=== PATIENT | female | born 1945 | race Caucasian/White ===

== ENCOUNTER → 2017-02-09 | Outpatient (CLI) | payer OTHER ==
[~2017-02-09] MED LIST: ASPIRIN325 MG PO; CARDIZEM CD240 MG PO; EYE CAP PO; GLIPIZIDE5 MG PO; LASIX40 MG PO; LISINOPRIL40 MG PO; METFORMIN500 MG PO; OSTEO-BI-FLEX 21 TAB PO; PRAVACHOL40 MG PO; [UNRECOGNIZED DRUG - OTHER] PO
== END | disposition home or self-care (01) ==
LOC: US 14:54
DX: N18.3 Chronic kidney disease, stage 3 (moderate) (principal)

== ENCOUNTER 2017-09-19 15:22 | Inpatient (IN) | payer OTHER ==
[~2017-09-19] VITALS: Ht 170.2 cm; Wt 102.3 kg
--- NOTE | ~2017-09-19 | CON ---
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 The patient is getting CT scan as well as a bone scan. Depending upon that further intervention. In the meantime, I will review the MRI of the brain. Discussed with the family. Full consult to follow. JAVAN HINDS MD CM:CONSTR:REPORT OF CONSULTATION 1131 09/21/17 0004 interface
--- NOTE | 2017-09-19 15:55 | NUR ---
A 72, admitted to , under the services of GRETA Shin MD with a diagnosis of POSS CVA, DIZZY . Chief complaint is DIZZINESS. Patient arrived via wheel chair from [place]. Monitor applied. Initial assessment completed. Vital signs taken and recorded. GRETA SHIN MD notified of admission to the unit. Orders received. See assessment for past medical history, medications and allergies. visitation policy reviewed. Clothing/patient valuable form completed. RAMIN PIERRE
[2017-09-19] MEDS ORDERED: ASPIR LOW81 MG PO (15:57)
[2017-09-19] MEDS ORDERED: ZESTRIL10 MG PO (15:58)
[2017-09-19 16:00] VITALS: BP 180/63
[2017-09-19] MEDS ORDERED: TRAD5TAB1 PO (16:00)
[2017-09-19] MEDS ORDERED: PRAVACHOL80 M1 GT (16:00)
[2017-09-19] MEDS ORDERED: ACTOS30 M1 PO (16:00)
[2017-09-19] MEDS ORDERED: HYDROCHLOROTH12.5 M3 PO (16:01)
[2017-09-19] MEDS ORDERED: SYSTANE 0.3-0.415 ML OP (16:03)
[2017-09-19] MEDS ORDERED: LOVAZA1 GM PO (16:04)
[2017-09-19 18:07] LABS: BASO % 0.2 % (0.0-1.0); EOS # 0.1 10*3/uL (0.0-0.4); EOS % 1.7 % (1.0-4.0); HEMOGLOBIN 9.2 g/dl (12.0-16.0); LYMPH # 1.9 10*3/uL (1.3-4.4); LYMPH % 22.9 % (27.0-41.0); MEAN CELL VOLUME 98.2 fl (81.0-99.0); MEAN CORPUSCULAR HGB 32.3 pg (27.0-31.0); MEAN CORPUSCULAR HGB CONC 32.9 g/dl (33.0-37.0); MEAN PLATELET VOLUME 10.1 fl (9.6-12.3); MONO # 0.4 10*3/uL (0.1-1.0); NEUT # 5.7 10*3/uL (2.3-7.9); NEUT % 69.5 % (47.0-73.0); PLATELET COUNT AUTOMATED 241 10*3/uL (130-400); RED BLOOD COUNT 2.85 10*6/uL (4.10-5.10); RED CELL DISTRI WIDTH 14.3 % (0-14.5); WHITE BLOOD COUNT 8.2 10*3/uL (4.8-10.8)
[2017-09-19 18:24] LABS: ALBUMIN 2.6 gm/dl (3.1-4.5); CREATININE 1.92 mg/dL (0.55-1.02); MAGNESIUM 2.3 mg/dL (1.5-2.1); PHOSPHOROUS 3.2 mg/dL (2.5-4.9); POTASSIUM 3.9 mmol/L (3.5-5.1); TOTAL PROTEIN 10.3 gm/dL (6.4-8.2)
[2017-09-19 18:25] LABS: FREE T4 1.52 ng/dl (0.76-1.46)
[2017-09-19 18:30] LABS: THYROID STIM HORMONE (HS) 1.41 uIU/ml (0.358-4.75)
--- NOTE | 2017-09-19 18:39 | NUR ---
PT MEDICATED WITH TYLENOL FOR C/O HEADACHE AND VISTARIL FOR ANXIETY. WILL MONITOR
[2017-09-19 19:09] LABS: VITAMIN D, 25-HYDROXY 21.8 ng/mL (30-100)
--- NOTE | 2017-09-19 19:14 | NUR ---
SPOKE WITH DR HINDS REGARDING CONSULT. NEW ORDERS RECIEVED
[2017-09-19 20:00] VITALS: BP 174/54
--- NOTE | 2017-09-19 20:19 | NUR ---
PT RECEIVED RESTORIL FOR ANXIETY AND TO AID REST AND SLEEP.
--- NOTE | 2017-09-19 20:30 | NUR ---
PT RECEIVED RESTORIL EARLY PER DR ORDERS. PT IS ANXIOUS AND SHAKING.
--- NOTE | 2017-09-19 21:45 | NUR ---
PT CLAIMS RESTORIL HAS TAKEN EFFECT AND HELPED HER TO RELAX. SHE IS NO LONGER SHAKING UNCONTROLLABLY AND SEEMS LESS ANXIOUS.
[2017-09-20] VITALS: BP 134/49
--- NOTE | 2017-09-20 06:15 | NUR ---
RADIOLOGY CALLED, PT OYSTER PICKER TOO HIGH TO DO CT ABD/PEL/CHEST WITH CONTRAST INJ. CALLED AND SPOKE TO DR HINDS, HE SAID IT IS OK TO DO THE CT WITHOUT CONTRAST
[2017-09-20 06:37] LABS: BASO % 0.5 % (0.0-1.0); EOS # 0.2 10*3/uL (0.0-0.4); EOS % 3.4 % (1.0-4.0); HEMATOCRIT 23.9 % (37.0-47.0); HEMOGLOBIN 7.7 g/dl (12.0-16.0); LYMPH # 2.2 10*3/uL (1.3-4.4); LYMPH % 36.3 % (27.0-41.0); MEAN CELL VOLUME 99.6 fl (81.0-99.0); MEAN CORPUSCULAR HGB 32.1 pg (27.0-31.0); MEAN CORPUSCULAR HGB CONC 32.2 g/dl (33.0-37.0); MEAN PLATELET VOLUME 10.3 fl (9.6-12.3); MONO # 0.4 10*3/uL (0.1-1.0); MONO % 7.2 % (3.0-9.0); NEUT # 3.2 10*3/uL (2.3-7.9); NEUT % 52.3 % (47.0-73.0); PLATELET COUNT AUTOMATED 202 10*3/uL (130-400); RED CELL DISTRI WIDTH 14.5 % (0-14.5); WHITE BLOOD COUNT 6.1 10*3/uL (4.8-10.8)
[2017-09-20 06:38] LABS: CREATININE 1.82 mg/dL (0.55-1.02); TOTAL PROTEIN 8.2 gm/dL (6.4-8.2)
[2017-09-20 08:00] VITALS: BP 152/48
--- NOTE | 2017-09-20 08:30 | NUR ---
Gas Leak Tester in to talk to patient. Patient states lives at HOME with HER AND FAMILY. There are 5 steps in the home. Physician: DR HERNDON [facility] Home health services: NONE Patient's level of ADLs: MINIMAL ASSIST Patient has working utilities: YES DME: CANE Follow-up physician's appointment after d/c: PREFERS TO MAKE OWN APPT Does patient want to access PORTAL?: Discharge plan HOME IF POSSIBLE. KELSEY DAVE
--- NOTE | 2017-09-20 11:00 | NUR ---
AM MEDS TAKEN.
[2017-09-20 12:00] VITALS: BP 176/65
--- NOTE | 2017-09-20 13:07 | NUR ---
MEDICATED WITH TYLENOL FOR HEADACHE.
--- NOTE | 2017-09-20 14:26 | NUR ---
NO FURTHER COMPLAINTS.
[2017-09-20 16:00] VITALS: BP 191/74
[2017-09-20] MEDS ORDERED: Vitamin D PO (17:38)
[2017-09-20] MEDS ORDERED: LISINOPRIL20 MG PO (17:38)
--- NOTE | 2017-09-20 18:25 | NUR ---
NURSE TO NURSE REPORT CALLED TO [facility].
--- NOTE | 2017-09-20 18:30 | NUR ---
PATIENT DISCHARGED TO [facility] VIA AMBULANCE. BELONGINGS AND PAPERWORK SENT WITH PATIENT.
== END 2017-09-20 18:30 | disposition short-term general hospital (02) | DRG 606 ==
LOC: 5E 15:22
PROVIDERS: Internal Medicine Hospice and Palliative Medicine; ADMIT Internal Medicine
DX: R90.0 Intracranial space-occupying lesion found on diagnostic imaging of central nervous system (principal); N17.0 Acute kidney failure with tubular necrosis; E43 Unspecified severe protein-calorie malnutrition; R65.10 Systemic inflammatory response syndrome (SIRS) of non-infectious origin without acute organ dysfunction; E11.22 Type 2 diabetes mellitus with diabetic chronic kidney disease; H49.23 Sixth [abducent] nerve palsy, bilateral; E66.01 Morbid (severe) obesity due to excess calories; E11.65 Type 2 diabetes mellitus with hyperglycemia; E88.09 Other disorders of plasma-protein metabolism, not elsewhere classified; I16.1 Hypertensive emergency; E83.41 Hypermagnesemia; D64.9 Anemia, unspecified; N18.3 Chronic kidney disease, stage 3 (moderate); H50.9 Unspecified strabismus; I12.9 Hypertensive chronic kidney disease with stage 1 through stage 4 chronic kidney disease, or unspecified chronic kidney disease; Z98.42 Cataract extraction status, left eye; Z98.41 Cataract extraction status, right eye; Z87.891 Personal history of nicotine dependence; Z82.49 Family history of ischemic heart disease and other diseases of the circulatory system; Z79.82 Long term (current) use of aspirin; Z79.899 Other long term (current) drug therapy; Z80.8 Family history of malignant neoplasm of other organs or systems; Z83.49 Family history of other endocrine, nutritional and metabolic diseases

== ENCOUNTER 2017-10-23 14:31 | Inpatient (IN) | payer OTHER ==
[~2017-10-23] VITALS: Ht 167.6 cm; Wt 101.3 kg
--- NOTE | ~2017-10-23 | PR ---
[place], [place] PROGRESS NOTE NAME: BRANDO BRAN [facility] #: [id number] UNIT #: [id number] ROOM: 422 DOCTOR: JAVAN HINDS MD BIRTHDATE: [birth year] DOS: 10/26/2017 SUBJECTIVE: The patient is doing better. She is due for a MediPort tomorrow. She is feeling better. REVIEW OF SYSTEMS: HEENT: No trouble swallowing. No double vision. No loss of vision. No pain. ENT AND RESPIRATORY: No wheeze. No change in voice. No cough. No shortness of breath. No coughing up blood. No epistaxis. CARDIOLOGIC: No chest pain. No dizziness. No irregular heartbeat. No leg edema. No palpitations. No shortness of breath. HEMATOLOGIC AND LYMPH: No past transfusion. No fatigue. No loss of appetite. No easy bruising. GASTROENEROLOGIC: No change in bowel habits. No vomiting blood. No abdominal cramping. No nausea. No vomiting. No diarrhea. No constipation. No blood in stool. FEMALE REPRODUCTIVE: No dyspareunia. No pelvic pain. MUSCULOSKELETAL: No back pain. No muscle pain or weakness. No tingling/numbness. UROLOGIC: No pain with urination. No difficulty urinating. No frequent urination. NEUROLOGIC: No burning pain in feet. No trouble with coordination. No loss of consciousness. No headache. No tingling/numbness. No memory loss. PHYSICAL EXAMINATION: GENERAL: Pleasant woman in no apparent distress. She is awake, alert and oriented. VITAL SIGNS: Stable. She is afebrile. HEENT: Normocephalic, atraumatic. NECK AND THYROID: Supple. No JVD, thyromegaly, or lymphadenopathy. HEART: Normal S1, S2. Regular rate and rhythm. LUNGS: Clear to auscultation and percussion. ABDOMEN: Soft. Nontender, nondistended. Bowel sounds present. EXTREMITIES: Normal ROM. No clubbing. No edema. LABORATORY DATA: White count of 6.9, hemoglobin of 5.7, hematocrit 17.5, platelet count of 137,000. Glucose of 258, creatinine of 20, EGFR of 23. Sodium 136, potassium 4.6, chloride 104, bicarbonate 24, calcium 8.1. ASSESSMENT: 1. Recently diagnosed multiple myeloma. 2. Severe anemia. 3. Acute renal failure with tubular necrosis. PLAN: Workup for multiple myeloma has been ordered, awaiting for the record filing, they need to come back. In the meantime, we will give few units of packed RBCs depending on further intervention. I had detailed discussion with the patient about it, seemed to understand it. We will continue the heparin and later change to oral anticoagulation. Ample time was given to the patient to ask me questions. [place], [place] PROGRESS NOTE NAME: BRANDO BRAN UNIT #: [id number] ROOM: 422 DOCTOR: JAVAN HINDS MD BIRTHDATE: [birth year] JAVAN HINDS MD CM:PNTRANS [id number] JAVAN HINDS MD 10/26/17 1203 interface
--- NOTE | ~2017-10-23 | CON ---
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 The patient had huge osteolytic lesion, history of chronic heart disease, stage 3, essential hypertension, hypercholesterolemia, hypermagnesemia, morbid obesity, type 2 diabetes mellitus, and vitamin D deficiency. PAST SURGICAL HISTORY: Right eye surgery secondary to strabismus and rectal repair, history of bilateral cataract extraction, and spinal surgery. SOCIAL HISTORY: No smoking or drinking. Used to be a former smoker, quit 30 years ago. FAMILY HISTORY: Father had throat cancer, at 80. Mother had hypertension and hypothyroidism, at age 93. ALLERGIES: No known allergies. MEDICATIONS: Norvasc, aspirin, bumetanide, vitamin D3, dexamethasone, famotidine, hydrochlorothiazide, lisinopril, ____, Actos, Pravachol, and Celexa. REVIEW OF SYSTEMS: CONSTITUTIONAL: No chills. No fatigue. No fever. No loss of appetite. No night sweats. No weakness. No weight loss. HEENT: No trouble swallowing. No loss of smell. No loss of hearing. No double vision. No pain. No discharge. ENT AND RESPIRATORY: No wheeze. No sore throat. No change in voice. No hearing loss. No nose bleed. No cough. No trouble breathing through nose. No shortness of breath. No coughing up blood. No epistaxis. CARDIOVASCULAR: No chest pain. No dizziness. No irregular heartbeat. No leg edema. No pain in legs while walking. No palpitations. No shortness of breath. DERMATOLOGIC: No acne. No hives. No laceration. No mole. No rash. ENDOCRINE: No cold intolerance. No diabetes. No fatigue. No hot flashes. No polydipsia. No polyuria. No urinating frequently. No weight loss. HEMATOLOGIC AND LYMPH: No fatigue. No easy bruising. GASTROENTEROLOGIC: No change in bowel habits. No indigestion. No frequent [place], [place] REPORT OF CONSULTATION NAME: BRANDO BRAN UNIT #: [id number] ROOM: [facility] DOCTOR: JAVAN HINDS MD BIRTHDATE: [birth year] bloating. No vomiting blood. No abdominal cramping. No nausea. No heartburn. No vomiting. No abdominal pain. No dysphagia. No diarrhea. No constipation. No blood in stool. FEMALE REPRODUCTIVE: No vaginal itching. No difficulty urinating. No heavy periods. No dyspareunia. No sexually active. No dysmenorrhea. No pelvic pain. No breast pain. No nipple discharge. No abnormal vaginal discharge. No hot flashes. MUSCULOSKELETAL: No back pain. No muscle pain or weakness. No neck pain. No tingling/numbness. No swelling/bruising. No osteoporosis treatment. OPHTHALMOLOGIC: No double vision. No diminished vision. No loss of vision. UROLOGIC: No dysuria. No frequent nighttime urination. No irregular periods. No pain with urination. No difficulty urinating. No blood in urine. No frequent urination. No urinary incontinence. NEUROLOGIC: No loss of sensation in specific body area. No vertigo. No burning pain in feet. No trouble with balance. No trouble with coordination. No loss of consciousness. No loss of feeling/power. No confusion. No headache. No tingling/numbness. PSYCHOLOGIC: No tinnitus. No headaches. No shortness of breath. No weight decrease. No nausea. No vomiting. No abdominal discomfort. No constipation. No diarrhea. No depression. No anxiety. PHYSICAL EXAMINATION: GENERAL: General appearance: She is a pleasant woman, in no apparent distress. VITAL SIGNS: Stable. She is afebrile. HEENT: Oral mucosa appears intact. The external ears are normal in appearance. Nares are patent without lesions, exudates, erythema, or inflammation. Tongue is symmetrical. Uvula is midline. Right eye, glasses made opaque. NECK AND THYROID: Neck supple without palpable masses. Trachea is midline. No thyromegaly. No carotid bruit or JVD. BREASTS: Normal. Nipples unremarkable. No drainage. No lumps felt on either side. HEART: Normal S1, S2, without significant murmur, rub, or gallop. LUNGS: Clear to auscultation and percussion with good air entry bilaterally. The patient is breathing easily without the use of accessory muscles. Diaphragmatic excursions are intact. ABDOMEN: No costovertebral angle tenderness. Soft. No organomegaly or masses. Nontender. No hernias present. Liver and spleen are not palpable. LYMPHATIC: No adenopathy noted in the cervical, supraclavicular, axillary, or inguinal regions. NEUROLOGIC: Nonfocal. Oriented to person, place, and time. MENTAL STATUS: Appropriate for mood and affect. PERIPHERAL PULSES: No varicosities. Femoral and pedal pulses are palpable. EXTREMITIES: Positive edema, bilateral lower extremity. No clubbing, cyanosis, or erythema. LABORATORY DATA: Sodium 139, potassium 4.1, chloride 108, bicarbonate 28. White count of 5.0, hemoglobin 7.9, hematocrit 23.7, platelet count of 106,000. On 10/25/2017, white count of 3.8, hemoglobin 6.1, hematocrit 18.5, MCV 100.0, platelet count of 113,000. [place], [place] REPORT OF CONSULTATION NAME: BRANDO BRAN UNIT #: [id number] ROOM: 422 DOCTOR: JAVAN HINDS MD BIRTHDATE: [birth year] ASSESSMENT: 1. Bilateral DVT. 2. Acute renal failure with tubular necrosis. 3. Recently diagnosed multiple myeloma. 4. Thrombocytopenia. 5. Macrocytic anemia. PLAN: The patient was started on heparin. It can be later changed to oral anticoagulation. In addition, I am going to get records from [facility], where she was diagnosed with multiple myeloma. Transfusion on p.r.n. basis. She will be getting a couple units of packed RBC. I had detailed discussion with the patient about it, seemed to understand it. Ample time was given to the patient to ask me questions. We will follow. Thanks for consulting and letting me participate in the care of this interesting patient. JAVAN HINDS MD CM:CONSTR:REPORT OF CONSULTATION 1220 10/26/17 0520 interface
--- NOTE | ~2017-10-23 | CON ---
[place], [place] REPORT OF CONSULTATION [id number] UN[facility] #: [id number] ROOM: [facility] DOCTOR: CLAUDY MAYO MD BIRTHDATE: [birth year] DOS: 10/26/2017 REQUESTING PHYSICIAN: REASON FOR CONSULTATION: Code blue/syncope. ASSESSMENT: 1. Initial presentation for bilateral lower extremity pain with subsequent evidence of bilateral deep venous thrombosis. 2. Recent diagnosis of multiple myeloma. Patient has been managed at [facility] with radiation for lytic lesions. 3. History of coronary artery disease. 4. Hypertension. 5. Diabetes. 6. Hyperlipidemia. 7. Morbid obesity. 8. Severe anemia following the use of heparin, current hemoglobin is 5. 9. Consultation for code blue/syncope while in the bathroom. PLAN: 1. Cycle cardiac enzymes. 2. Stop heparin. 3. Consider IVC filter placement as soon as possible. 4. Proceed with an echocardiogram. 5. GI workup for anemia. 6. Ischemic workup will be considered as an outpatient. 7. Consider IV fluids since patient appears to be prerenal. 8. Hold diuretics for now. 9. Obtain old record regarding patient's cardiac history. HISTORY OF PRESENT ILLNESS: The patient is a pleasant 72-year-old female unknown to our practice, was referred to our service for code blue and CPR after the patient was in the bathroom and found down unresponsive. Apparently, the patient was admitted for bilateral lower extremity edema after going through radiation treatment for lytic lesion from her multiple myeloma, which was recently diagnosed. Apparently, the patient went to the bathroom. She was found there completely unresponsive. She was pulled out quickly and CPR was initiated which the patient recovered very quickly. The patient currently is flat in bed. She is fatigued, kind of hard to get detailed history but most was obtained from old notes also. At any rate, patient denies any specific cardiac complaint. She is feeling weak and tired, but no chest pain, chest pressure, heaviness or tightness. No symptomatic palpitation. No other symptoms could be elicited. The patient is very sleepy also. PAST MEDICAL HISTORY: As detailed in my assessment. SOCIAL HISTORY: The patient denies any current tobacco, alcohol or illicit drug abuse. FAMILY HISTORY: Not applicable in view of patient age. [place], [place] REPORT OF CONSULTATION NAME: BRANDO BRAN UNIT #: [id number] ROOM: [facility] DOCTOR: CLAUDY MAYO MD BIRTHDATE: [birth year] CURRENT MEDICATIONS: Solu-Medrol, Lasix, Zocor, vitamin D, Actos, lisinopril, hydrochlorothiazide, fish oil, Pepcid, Bumex, Norvasc, morphine, Decadron, insulin, . ALLERGIES: The patient has no known drug allergies. REVIEW OF SYSTEMS: Not performed. PHYSICAL EXAMINATION: GENERAL: The patient is sleepy, tired and very weak. She is completely flat in bed, denies any ongoing complaint. VITAL SIGNS: Blood pressure 102/50, heart rate 83, respiratory rate of 14, temperature 97.8. HEENT: Extraocular movements intact. Pupils equal, round and reactive to light. Conjunctivae, significant pallor. Throat, no petechiae. NECK: Good upstroke. Bruits could be heard over both carotids. No lymphadenopathy, no thyromegaly. HEART: S1, S2 with holosystolic murmur at left sternal border. No rub or sternal heave. CHEST AND BACK: Not examined. LUNGS: Decreased air movement, but no rylan wheezing or rales. ABDOMEN: Obese, distended, soft, limited exam, unable to appreciate any masses or bruits, present bowel sounds. LOWER EXTREMITIES: There is no significant edema with quite faint distal pulses. NEUROLOGIC: Grossly nonfocal. SKIN: No significant rash. LABORATORY DATA: White count 9.6, hemoglobin 6.7, creatinine 2.7, BUN 62, GFR 17%. Total protein is 5.2, albumin is 1.8. CLAUDY MAYO MD CM:CONSTR:REPORT OF CONSULTATION 1746 10/27/17 0038 interface
[~2017-10-23 14:31] MED LIST changes: +ACTOS30 M1 PO; +ASPIR LOW81 MG PO; +HYDROCHLOROTH12.5 M3 PO; +LISINOPRIL20 MG PO; +LOVAZA1 GM PO; +PRAVACHOL80 M1 PO; +SYSTANE 0.3-0.415 ML OP; +TRAD5TAB1 PO; +Vitamin D PO; +ZESTRIL10 MG PO
[2017-10-23 15:16] LABS: BASO % 0.1 % (0.0-1.0); EOS % 0.5 % (1.0-4.0); HEMATOCRIT 24.2 % (37.0-47.0); HEMOGLOBIN 7.9 g/dl (12.0-16.0); LYMPH # 1.3 10*3/uL (1.3-4.4); LYMPH % 15.3 % (27.0-41.0); MEAN CELL VOLUME 98.4 fl (81.0-99.0); MEAN CORPUSCULAR HGB 32.1 pg (27.0-31.0); MEAN CORPUSCULAR HGB CONC 32.6 g/dl (33.0-37.0); MEAN PLATELET VOLUME 9.5 fl (9.6-12.3); MONO # 0.4 10*3/uL (0.1-1.0); NEUT # 6.5 10*3/uL (2.3-7.9); NEUT % 77.2 % (47.0-73.0); NUCLEATED RED BLOOD CELL 0.4 % (0.0-0.0); PLATELET COUNT AUTOMATED 109 10*3/uL (130-400); RED BLOOD COUNT 2.46 10*6/uL (4.10-5.10); WHITE BLOOD COUNT 8.5 10*3/uL (4.8-10.8)
[2017-10-23 15:41] LABS: ALBUMIN 2.5 gm/dl (3.1-4.5); CREATININE 1.87 mg/dL (0.55-1.02); PHOSPHOROUS 2.6 mg/dL (2.5-4.9); POTASSIUM 4.2 mmol/L (3.5-5.1)
[2017-10-23 17:29] VITALS: BP 167/70
[2017-10-23 17:30] VITALS: BP 167/70
--- NOTE | 2017-10-23 17:50 | NUR ---
Time: 1749 A 72 year old FEMALE admitted to under services of DR. YANICK KERR,GRETA. Pt. arrived via wheel chair from [place]. Chief complaint: BILATERAL LEGS SWELLING, POSITIVE FOR BILATERAL DVT ON ULTRASOUND TODAY. TEENA WILKINSON
[2017-10-23] MEDS ORDERED: HYDR25T PO (19:38)
[2017-10-23] MEDS ORDERED: PIOGLITAZONE HC30 MG PO (19:40)
[2017-10-23] MEDS ORDERED: NORVASC10 MG PO (19:42)
[2017-10-23] MEDS ORDERED: VITAMIN D-32000 UNIT PO (19:43)
[2017-10-23] MEDS ORDERED: SENEXON8.6 M1 PO (19:43)
[2017-10-23] MEDS ORDERED: PEPCID20 MG PO (19:45)
--- NOTE | 2017-10-23 19:45 | NUR ---
MED REC UPDATED US[facility], LIST PLACED ON CHART.
[2017-10-23] MEDS ORDERED: DEXAMETHASONE2 MG PO (19:46)
[2017-10-23] MEDS ORDERED: ARTIFICIAL TEAR15 M1 OU (19:47)
[2017-10-23] MEDS ORDERED: SODIUM BICARBO650 MG PO (19:48)
[2017-10-23] MEDS ORDERED: FUROSEMIDE20 M1 PO (19:48)
[2017-10-23] MEDS ORDERED: BUMETANIDE2 MG PO (19:50)
--- NOTE | 2017-10-23 19:52 | NUR ---
PT IN BED, LAYING DOWN WATCHING TV. LUNGS ARE CLEAR AND DIMINISHED. BLE EDEMA WITH 4+ PITTING. NO PULSES PALPABLE. DOPPLER USED, PULSES AUSCULTATED BILAT. IV SITE IS ASYM WITH NO COMPLAINTS. BEDSIDE COMMODE AND WALKER AT BEDSIDE. NO COMPLAINTS PER PT. WILL CONTINUE TO MONITOR.
[2017-10-23 20:00] VITALS: BP 140/36
[2017-10-23 20:47] LABS: ACT PARTIAL THROMBO TIME 20.6 SECONDS (20.8-31.5)
[2017-10-24] VITALS: BP 154/65
--- NOTE | 2017-10-24 03:06 | NUR ---
RESTING IN BED WITH EYES CLOSED RESPS EASY AND NONLABORED WITH NO S/S OF DISTRESS CALL LIGHT WITH IN REACH
[2017-10-24 06:08] LABS: HEMATOCRIT 23.7 % (37.0-47.0); HEMOGLOBIN 7.9 g/dl (12.0-16.0); MEAN CELL VOLUME 99.6 fl (81.0-99.0); MEAN CORPUSCULAR HGB 33.2 pg (27.0-31.0); MEAN CORPUSCULAR HGB CONC 33.3 g/dl (33.0-37.0); MEAN PLATELET VOLUME 9.6 fl (9.6-12.3); NUCLEATED RED BLOOD CELL 0.4 % (0.0-0.0); PLATELET COUNT AUTOMATED 106 10*3/uL (130-400); RED BLOOD COUNT 2.38 10*6/uL (4.10-5.10); RED CELL DISTRI WIDTH 16.7 % (0-14.5)
[2017-10-24 06:10] LABS: TOTAL PROTEIN, SERUM 6.6 g/dL (6.0-8.5)
[2017-10-24 06:30] LABS: ALBUMIN 2.3 gm/dl (3.1-4.5); CREATININE 1.62 mg/dL (0.55-1.02); PHOSPHOROUS 3.1 mg/dL (2.5-4.9); POTASSIUM 4.1 mmol/L (3.5-5.1); TOTAL PROTEIN 6.4 gm/dL (6.4-8.2)
[2017-10-24 06:35] LABS: THYROID STIM HORMONE (HS) 1.51 uIU/ml (0.358-4.75)
[2017-10-24 07:13] LABS: PLASMA CELL 1 % (0-0); TOTAL CELLS COUNTED 100 #CELLS
[2017-10-24 07:14] LABS: PLATELET SUFFICIENCY LOW (NORMAL); POLYCHROMASIA SLIGHT
--- NOTE | 2017-10-24 07:46 | NUR ---
Shift chart check completed.
[2017-10-24 07:56] LABS: VITAMIN D, 25-HYDROXY 26.9 ng/mL (30-100)
[2017-10-24 08:00] VITALS: BP 148/77
--- NOTE | 2017-10-24 08:22 | NUR ---
PHYSICAL THERAPY Nursing screen for PT received. PT not medically appropriate at this time, (B) LE DVT. Monae Saenz,PT
--- NOTE | 2017-10-24 08:30 | NUR ---
Nursing Scheduler in to talk to patient. Patient states lives at HOME with HER . There are 5 steps in the home. Physician: DR HERNDON [facility]: NONE Patient's level of ADLs: INDEPENDENT Patient has working utilities: YES DME: CANE/WALKER/3 IN ONE COMMODE Follow-up physician's appointment after d/c: PREFERS TO MAKE HER OWN APPT Does patient want to access PORTAL?: Discharge plan HOME. KELSEY DAVE
--- NOTE | 2017-10-24 08:42 | NUR ---
TYLENOL GIVEN FOR LEG NERVE PAIN.
[2017-10-24 12:00] VITALS: BP 162/60
[2017-10-24 14:06] LABS: A/G RATIO 0.7 (0.7-1.7); ALBUMIN 2.8 g/dL (2.9-4.4); ALPHA-1-GLOBULIN 0.3 g/dL (0.0-0.4); ALPHA-2-GLOBULIN 0.9 g/dL (0.4-1.0); BETA GLOBULIN 0.8 g/dL (0.7-1.3); GAMMA GLOBULIN 1.8 g/dL (0.4-1.8); GLOBULIN, TOTAL 3.8 g/dL (2.2-3.9); M-SPIKE 1.6 g/dL (Not Observed)
--- NOTE | 2017-10-24 15:06 | NUR ---
HEPARIN DRIP STOPPED FOR ELEVATED PTT & NOSE BLEED
[2017-10-24 15:08] LABS: FREE KAPPA LIGHT CHAINS 27.6 mg/L (3.3-19.4); KAPPA/LAMBDA RATIO 1.84 (0.26-1.65)
[2017-10-24 16:00] VITALS: BP 158/45
--- NOTE | 2017-10-24 17:22 | NUR ---
DR. HINDS AWARE OF CONSULT.
[2017-10-24 20:00] VITALS: BP 202/76
--- NOTE | 2017-10-24 21:44 | NUR ---
DARINEL REPORTED THAT PTS BP IS 202/76 AND HR 115. CHECKED IN ON PT. PT IN A GREAT AMOUNT OF PAIN AT THE BLE, BP IS 203/84 HR 116. CALLED , HE REQUESTED TO HAVE THE ON-CALL RESIDENT EVALUATE THE PT. CALLED AND NOTIFIED.
--- NOTE | 2017-10-24 22:06 | NUR ---
EVALUATED PT. NEW ORDERS RECEIVED. SEE MAR.
--- NOTE | 2017-10-24 22:29 | NUR ---
PT REQUESTED MEDICATION FOR BLE PAIN. PAIN RATED AT 10 OUT OF 10 AND IS DESCRIBED CONSTANT, SHARP, AND "SHOOTING". PAIN IS LOCATED BILATERALLY FROM KNEES TO FEET INTO TOES. PRN MORPHINE GIVEN. WILL CONTINUE TO MONITOR.
--- NOTE | 2017-10-24 22:49 | NUR ---
PER PT, PRN MORPHINE WAS EFFECTIVE FOR PAIN MANAGEMENT. PER PT, PAIN IS RATED 3 OUT OF 10. WILL CONTINUE TO MONITOR.
[2017-10-25] VITALS: BP 172/88
--- NOTE | 2017-10-25 00:50 | NUR ---
LAB CALLED WITH CRITCAL PTT OF 97.1. HEPARIN DRIP STOPPED PER PROTOCOL.
--- NOTE | 2017-10-25 01:56 | NUR ---
PER PROTOCOL, HERPARIN DRIP REDUCED BY 3 UNITS AND RESTARTED. TWO RNs VERIFIED DRIP RATE.
--- NOTE | 2017-10-25 03:36 | NUR ---
24HR CHART CHECK COMPLETED.
--- NOTE | 2017-10-25 04:12 | NUR ---
PT REQUESTED PAIN MEDICATION FOR BILAT PAIN OF THE LEGS. PT RATES PAIN AT 2 OUT OF 10 AND IS DESCRIBED CONSTANT AND SHARP. TYLENOL GIVEN. WILL CONTINUE TO MONITOR.
--- NOTE | 2017-10-25 05:11 | NUR ---
PER PT, TYLENOL WAS EFFECTIVE FOR PAIN MANAGEMENT. PT STATES SHE IS COMFORTABLE AND HAS 0 OUT OF 10 PAIN. WILL CONTINUE TO MONITOR.
[2017-10-25 07:21] LABS: HEMATOCRIT 18.5 % (37.0-47.0); HEMOGLOBIN 6.1 g/dl (12.0-16.0); MEAN PLATELET VOLUME 9.6 fl (9.6-12.3); NUCLEATED RED BLOOD CELL 0.8 % (0.0-0.0); PLATELET COUNT AUTOMATED 113 10*3/uL (130-400); RED BLOOD COUNT 1.85 10*6/uL (4.10-5.10); RED CELL DISTRI WIDTH 16.6 % (0-14.5); WHITE BLOOD COUNT 3.8 10*3/uL (4.8-10.8)
[2017-10-25 07:48] LABS: CREATININE 1.58 mg/dL (0.55-1.02)
[2017-10-25 07:55] LABS: PLATELET SUFFICIENCY LOW (NORMAL); POLYCHROMASIA SLIGHT; TOTAL CELLS COUNTED 100 #CELLS
[2017-10-25 08:00] VITALS: BP 144/52
--- NOTE | 2017-10-25 11:59 | NUR ---
Nursing screened and Occupational Therapy screen completed. Patient not appropriate for OT evaluation at this time d/t bilateral LE DVT treatments. Melissa Jefferson OTR/l
[2017-10-25 12:00] VITALS: BP 130/54
[2017-10-25 15:21] LABS: BASO % 0.1 % (0.0-1.0); EOS # 0.1 10*3/uL (0.0-0.4); EOS % 1.1 % (1.0-4.0); HEMATOCRIT 21.9 % (37.0-47.0); HEMOGLOBIN 7.2 g/dl (12.0-16.0); LYMPH # 1.4 10*3/uL (1.3-4.4); LYMPH % 20.1 % (27.0-41.0); MEAN CORPUSCULAR HGB 31.6 pg (27.0-31.0); MEAN CORPUSCULAR HGB CONC 32.9 g/dl (33.0-37.0); MEAN PLATELET VOLUME 9.4 fl (9.6-12.3); MONO # 0.3 10*3/uL (0.1-1.0); MONO % 4.1 % (3.0-9.0); NEUT # 5.3 10*3/uL (2.3-7.9); NEUT % 73.3 % (47.0-73.0); NUCLEATED RED BLOOD CELL 0.6 % (0.0-0.0); PLATELET COUNT AUTOMATED 122 10*3/uL (130-400); RED BLOOD COUNT 2.28 10*6/uL (4.10-5.10); RED CELL DISTRI WIDTH 17.9 % (0-14.5); WHITE BLOOD COUNT 7.2 10*3/uL (4.8-10.8)
[2017-10-25 15:22] LABS: MEAN CELL VOLUME 96.1 fl (81.0-99.0)
[2017-10-25 16:00] VITALS: BP 138/42
[2017-10-25 16:10] LABS: ALBUMIN, URINE RANDOM 67.2 % (.); ALPHA-1-GLOBULIN, URINE 5.1 % (.); ALPHA-2-GLOBULIN, URINE 6.2 % (.); GAMMA GLOBULIN, URINE 8.2 % (.); M-SPIKE % 5.1 % (Not Observed); PROTEIN,TOTAL - URINE RANDOM 47.2 mg/dL (Not Estab.)
--- NOTE | 2017-10-25 16:24 | NUR ---
NOTIFIED DR. MARTÍNEZ OF PT'S BLOOD PRESSURE. NO NEW ORDERS RECIEVED.
[2017-10-25 20:00] VITALS: BP 122/48; BP 134/36
[2017-10-25 22:00] VITALS: BP 146/44
--- NOTE | 2017-10-25 22:39 | NUR ---
IN BETWEEN PATIENTS BUTT, IS REDDENED AND EXCORIATED, PATIENT REQUESTING SOMETHING FOR IT. DR. MCGREGOR NOTIFIED, ORDER RECIEVED FOR [facility]
[2017-10-25 22:41] LABS: EOS % 0.3 % (1.0-4.0); HEMATOCRIT 20.2 % (37.0-47.0); HEMOGLOBIN 6.7 g/dl (12.0-16.0); LYMPH # 1.4 10*3/uL (1.3-4.4); LYMPH % 21.3 % (27.0-41.0); MEAN CELL VOLUME 95.3 fl (81.0-99.0); MEAN CORPUSCULAR HGB 31.6 pg (27.0-31.0); MEAN CORPUSCULAR HGB CONC 33.2 g/dl (33.0-37.0); MEAN PLATELET VOLUME 9.9 fl (9.6-12.3); MONO # 0.3 10*3/uL (0.1-1.0); MONO % 4.6 % (3.0-9.0); NEUT # 4.7 10*3/uL (2.3-7.9); NEUT % 72.6 % (47.0-73.0); PLATELET COUNT AUTOMATED 120 10*3/uL (130-400); RED BLOOD COUNT 2.12 10*6/uL (4.10-5.10); RED CELL DISTRI WIDTH 18.6 % (0-14.5); WHITE BLOOD COUNT 6.5 10*3/uL (4.8-10.8)
[2017-10-25 22:54] LABS: CREATININE 2.14 mg/dL (0.55-1.02); POTASSIUM 4.6 mmol/L (3.5-5.1)
[2017-10-26] VITALS (9 sets, daily range): BP systolic 99–126; BP diastolic 40–70
--- NOTE | 2017-10-26 06:26 | NUR ---
PRN TYLENOL GIVEN FOR PT COMPLAINTS OF LEG PAIN RATING IT A 6 OUT OF 10. CALL LIGHT WITHIN REACH, WILL MONITOR
[2017-10-26 06:34] LABS: MEAN CELL VOLUME 96.7 fl (81.0-99.0); MEAN CORPUSCULAR HGB 31.5 pg (27.0-31.0); MEAN CORPUSCULAR HGB CONC 32.6 g/dl (33.0-37.0); NUCLEATED RED BLOOD CELL 0.4 % (0.0-0.0); PLATELET COUNT AUTOMATED 137 10*3/uL (130-400); RED BLOOD COUNT 1.81 10*6/uL (4.10-5.10); RED CELL DISTRI WIDTH 18.3 % (0-14.5); WHITE BLOOD COUNT 6.9 10*3/uL (4.8-10.8)
--- NOTE | 2017-10-26 06:35 | NUR ---
DR. PARMAR NOTIFIED OF CONSULT AT THIS TIME
[2017-10-26 07:02] LABS: PLATELET SUFFICIENCY NORMAL (NORMAL); POLYCHROMASIA SLIGHT; TOTAL CELLS COUNTED 100 #CELLS; TOXIC GRANULATION SLIGHT
[2017-10-26 07:05] LABS: HEMATOCRIT 17.5 % (37.0-47.0); HEMOGLOBIN 5.7 g/dl (12.0-16.0)
--- NOTE | 2017-10-26 07:08 | NUR ---
DR. MARTÍNEZ NOTIFIED OF CRITICAL H + H
--- NOTE | 2017-10-26 11:40 | NUR ---
Informed consent obtained from family for Blood transfussion by Dr. HINDS. Patient identified by arm band. Vital signs recorded. Blood unit number verified by 2 R.N.'s. I.V. site satisfactory. Unit started at a KVO rate with Normal Saline. DAMION MASON
--- NOTE | 2017-10-26 12:40 | NUR ---
PT GIVEN PRN PO NORCO FOR COMPLAINTS OF BACK PAIN. WILL MONITOR EFFECTIVENESS.
--- NOTE | 2017-10-26 14:15 | NUR ---
BLOOD INFUSION COMPLETE. PT TOLERATED
--- NOTE | 2017-10-26 14:30 | NUR ---
LOUD VOICES HEARD IN IMC CALLING FOR A RAPID RESPONSE THIS RN RESPONDED, TO FIND THE PT ON THE BSC, COMPLETELY UNRESPONSIVE, NO RESP EFFORT AND WEAK AGONAL PULSE, MULTIPLE STAFF NEEDED TO GET PT BACK IN BED, ONCE IN BED, PT STILL DID NOT HAVE ANY RESP EFFORT AND WEAK, SLOW PULSES, CODE BLUE CALLED DUE TO PT IN CARDIOPULMONARY ARREST,CPR STARTED AND AFTER 4-5 COMPRESSION, PT HAD A LOUD GASPING RESPIRATION AND BEGAN SPONTANOUSLY BREATHING AND A GOOD PULSES WAS PALPATED, RESP AT BEDSIDE, PT TRANSFERRED TO [facility]
--- NOTE | 2017-10-26 14:41 | NUR ---
Pt. recieved via bed post code blue. lethargic on arrival. slow yet appropriate response. Physicians present on arrival . physicain deemed transfusion reaction, all blood product , saline and urine hand carried to lab. awaiting result prior to continuing to infiuse #'s 2 and 3 PRBC's
[2017-10-26 15:01] LABS: EOS % 0.1 % (1.0-4.0); HEMATOCRIT 20.2 % (37.0-47.0); HEMOGLOBIN 6.7 g/dl (12.0-16.0); LYMPH # 2.6 10*3/uL (1.3-4.4); LYMPH % 27.2 % (27.0-41.0); MEAN CELL VOLUME 95.7 fl (81.0-99.0); MEAN CORPUSCULAR HGB 31.8 pg (27.0-31.0); MEAN CORPUSCULAR HGB CONC 33.2 g/dl (33.0-37.0); MEAN PLATELET VOLUME 10.3 fl (9.6-12.3); MONO # 0.6 10*3/uL (0.1-1.0); MONO % 6.3 % (3.0-9.0); NEUT # 6.3 10*3/uL (2.3-7.9); NUCLEATED RED BLOOD CELL 0.1 10*3/uL (0.0-0.0); NUCLEATED RED BLOOD CELL 0.5 % (0.0-0.0); PLATELET COUNT AUTOMATED 150 10*3/uL (130-400); RED BLOOD COUNT 2.11 10*6/uL (4.10-5.10); RED CELL DISTRI WIDTH 16.8 % (0-14.5); WHITE BLOOD COUNT 9.6 10*3/uL (4.8-10.8)
--- NOTE | 2017-10-26 15:05 | NUR ---
Dr. Juarez office called w/ consult notification.
[2017-10-26 15:22] LABS: ALBUMIN 1.8 gm/dl (3.1-4.5); CREATININE 2.76 mg/dL (0.55-1.02); POTASSIUM 4.3 mmol/L (3.5-5.1); TOTAL PROTEIN 5.2 gm/dL (6.4-8.2)
[2017-10-26 15:23] LABS: TROPONIN I 0.018 ng/ml (<0.045)
[2017-10-26 15:40] LABS: ABG HCO3 19.5 mmol/l (22-26); ABG O2 SATURATION 99.1 % (95-97); ARTERIAL BLOOD GAS PH 7.426 (7.35-7.45)
[2017-10-26 16:11] LABS: FREE KAPPA LIGHT CHAINS 21.8 mg/L (3.3-19.4); FREE LAMBDA LIGHT CHAINS 14.5 mg/L (5.7-26.3)
[2017-10-26 16:49] LABS: URINE BLOOD,POST TRANSFUSION NEGATIVE (NEGATIVE)
[2017-10-26 16:57] LABS: URINE RBC,POST TRANSFUSION 0-2 rbc/hpf (0-2)
--- NOTE | 2017-10-26 17:10 | NUR ---
1800 po meds held , pt. is s/p code blue and remains listless.
[2017-10-26 17:45] LABS: BILIRUBIN NEGATIVE (NEGATIVE); BLOOD NEGATIVE (NEGATIVE); CLARITY CLEAR (CLEAR); COLOR YELLOW (YELLOW); GLUCOSE NEGATIVE (NEGATIVE); KETONE NEGATIVE (NEGATIVE); LEUKO ESTERASE NEGATIVE (NEGATIVE); NITRITE NEGATIVE (NEGATIVE); UROBILINOGEN 0.2 E.U./dl (0.2-1.0)
[2017-10-26 18:02] LABS: HYALINE CAST 0-2; WBC 0-2 wbc/hpf (0-5)
--- NOTE | 2017-10-26 18:31 | NUR ---
Dr. Juarez in to [facility]. post completion of echo it was elected to transfer pt. to higher level of care. Son here and updated. Dr. birmingham in and spoke at length w/ pt. and family. Dr. Christianson will be accepting at [facility].
--- NOTE | 2017-10-26 19:20 | NUR ---
PATIENT LYING IN BED, WITH COMPLAINT OF PAIN IN RT LEG. RATES 05/06. NORCO GIVEN, WILL MONITOR AND REASSESS.
--- NOTE | 2017-10-26 21:00 | NUR ---
NORCO EFFECTIVE FOR PAIN IN LEGS, PATIENT WAS ALSO ADJUSTED IN BED FOR COMFORT.
[2017-10-27 04:10] VITALS: BP 115/42
--- NOTE | 2017-10-27 04:53 | NUR ---
REPORT GIVEN TO RN AT [facility]. LIFE TEAM ON FLOOR TO TRANSPORT PATIENT.
--- NOTE | 2017-10-27 04:56 | NUR ---
PATIENT LEFT FLOOR VIA AMBULANCE FOR [facility]. PAPERWORK SIGNED AND GIVEN TO EMT.
[2017-10-27 07:07] LABS: BETA-2 GLYCOPROTEIN I AB,IGA <9 (0-25); BETA-2 GLYCOPROTEIN I AB,IGG <9 (0-20); BETA-2 GLYCOPROTEIN I AB,IGM <9 (0-32)
[2017-10-30 16:11] LABS: A/G RATIO 0.8 (0.7-1.7); ALBUMIN 2.2 g/dL (2.9-4.4); ALPHA-1-GLOBULIN 0.2 g/dL (0.0-0.4); ALPHA-2-GLOBULIN 0.7 g/dL (0.4-1.0); BETA GLOBULIN 0.6 g/dL (0.7-1.3); GAMMA GLOBULIN 1.3 g/dL (0.4-1.8); GLOBULIN, TOTAL 2.9 g/dL (2.2-3.9); M-SPIKE 1.2 g/dL (Not Observed); TOTAL PROTEIN, SERUM 5.1 g/dL (6.0-8.5)
== END 2017-10-27 04:57 | disposition short-term general hospital (02) | DRG 299 ==
LOC: LAB 14:31 → US 17:00 → 4E 17:03 → ICCU 10-26 14:40
PROVIDERS: Hospitalist; Internal Medicine; Internal Medicine Hematology & Oncology; ADMIT Internal Medicine
PROC: 30233N1 Transfusion of Nonautologous Red Blood Cells into Peripheral Vein, Percutaneous Approach (ICD-10-PCS; principal; 2017-10-25)
PROC: 5A12012 Performance of Cardiac Output, Single, Manual (ICD-10-PCS; 2017-10-26)
DX: I82.431 Acute embolism and thrombosis of right popliteal vein (principal); N17.0 Acute kidney failure with tubular necrosis; E43 Unspecified severe protein-calorie malnutrition; E11.22 Type 2 diabetes mellitus with diabetic chronic kidney disease; E11.65 Type 2 diabetes mellitus with hyperglycemia; D69.6 Thrombocytopenia, unspecified; H49.23 Sixth [abducent] nerve palsy, bilateral; E87.8 Other disorders of electrolyte and fluid balance, not elsewhere classified; D53.9 Nutritional anemia, unspecified; I82.443 Acute embolism and thrombosis of tibial vein, bilateral; I12.9 Hypertensive chronic kidney disease with stage 1 through stage 4 chronic kidney disease, or unspecified chronic kidney disease; N18.3 Chronic kidney disease, stage 3 (moderate); E66.01 Morbid (severe) obesity due to excess calories; E78.00 Pure hypercholesterolemia, unspecified; I25.10 Atherosclerotic heart disease of native coronary artery without angina pectoris; R55 Syncope and collapse; E55.9 Vitamin D deficiency, unspecified; R90.0 Intracranial space-occupying lesion found on diagnostic imaging of central nervous system; Z79.4 Long term (current) use of insulin; Z98.42 Cataract extraction status, left eye; Z98.41 Cataract extraction status, right eye; Z82.49 Family history of ischemic heart disease and other diseases of the circulatory system; Z79.899 Other long term (current) drug therapy; Z79.82 Long term (current) use of aspirin; Z80.8 Family history of malignant neoplasm of other organs or systems; Z84.89 Family history of other specified conditions; Z85.89 Personal history of malignant neoplasm of other organs and systems; Z92.3 Personal history of irradiation; Z87.891 Personal history of nicotine dependence; Z68.36 Body mass index [BMI] 36.0-36.9, adult

== ENCOUNTER → 2017-11-07 | Emergency (ER) | payer OTHER ==
[~2017-11-07] VITALS: Ht 167.6 cm; Wt 104.3 kg
[~2017-11-07] MED LIST changes: +ARTIFICIAL TEAR15 M1 OU; +BUMETANIDE2 MG PO; +DEXAMETHASONE2 MG PO; +FUROSEMIDE20 M1 PO; +HYDR25T PO; +NORVASC10 MG PO; +PEPCID20 MG PO; +PIOGLITAZONE HC30 MG PO; +SENEXON8.6 M1 PO; +SODIUM BICARBO650 MG PO; +VITAMIN D-32000 UNIT PO
[2017-11-07 02:15] LABS: HEMATOCRIT 25.6 % (37.0-47.0); HEMOGLOBIN 8.1 g/dl (12.0-16.0); MEAN CORPUSCULAR HGB 31.6 pg (27.0-31.0); MEAN CORPUSCULAR HGB CONC 31.6 g/dl (33.0-37.0); MEAN PLATELET VOLUME 9.7 fl (9.6-12.3); NUCLEATED RED BLOOD CELL 0.1 % (0.0-0.0); PLATELET COUNT AUTOMATED 235 10*3/uL (130-400); RED BLOOD COUNT 2.56 10*6/uL (4.10-5.10); RED CELL DISTRI WIDTH 15.9 % (0-14.5); WHITE BLOOD COUNT 14.8 10*3/uL (4.8-10.8)
[2017-11-07 02:26] LABS: ACT PARTIAL THROMBO TIME 27.5 SECONDS (20.8-31.5); INTERNATIONAL NORM RATIO 1.1 (2.0-3.5)
[2017-11-07 02:38] LABS: PLATELET SUFFICIENCY NORMAL (NORMAL); TOTAL CELLS COUNTED 100 #CELLS
[2017-11-07 02:39] LABS: POLYCHROMASIA SLIGHT
[2017-11-07 02:48] LABS: ALBUMIN 1.8 gm/dl (3.1-4.5); CREATININE 2.59 mg/dL (0.55-1.02); TOTAL PROTEIN 6.2 gm/dL (6.4-8.2); TROPONIN I 0.025 ng/ml (<0.045)
[2017-11-07 02:52] LABS: POTASSIUM 6.7 mmol/L (3.5-5.1)
[2017-11-07 02:53] LABS: THYROID STIM HORMONE (HS) 0.612 uIU/ml (0.358-4.75)
[2017-11-07 03:12] LABS: BILIRUBIN NEGATIVE (NEGATIVE); BLOOD 3+ (NEGATIVE); CLARITY CLOUDY (CLEAR); COLOR YELLOW (YELLOW); GLUCOSE NEGATIVE (NEGATIVE); KETONE TRACE (NEGATIVE); LEUKO ESTERASE 2+ (NEGATIVE); NITRITE NEGATIVE (NEGATIVE)
[2017-11-07 03:23] LABS: BACTERIA 3+; RBC 41-50 rbc/hpf (0-2); WBC TNTC wbc/hpf (0-5)
[2017-11-07 05:12] LABS: CREATININE 2.67 mg/dL (0.55-1.02)
[2017-11-07 05:14] LABS: POTASSIUM 6.9 mmol/L (3.5-5.1)
== END ==
LOC: ED 01:52
PROVIDERS: Emergency Medicine Emergency Medical Services
DX: K63.1 Perforation of intestine (nontraumatic) (principal); E11.22 Type 2 diabetes mellitus with diabetic chronic kidney disease; I12.9 Hypertensive chronic kidney disease with stage 1 through stage 4 chronic kidney disease, or unspecified chronic kidney disease; N18.3 Chronic kidney disease, stage 3 (moderate); N17.0 Acute kidney failure with tubular necrosis; E11.65 Type 2 diabetes mellitus with hyperglycemia; E83.41 Hypermagnesemia; E78.00 Pure hypercholesterolemia, unspecified; Z79.4 Long term (current) use of insulin; Z79.899 Other long term (current) drug therapy; Z79.82 Long term (current) use of aspirin